=== PATIENT | female | born 1955 | race Caucasian/White ===

== ENCOUNTER → 2021-01-16 | Outpatient (CLI) | payer OTHER ==
[~2021-01-16] MED LIST: ASA81BEC PO; GLUCOSAMINE HC500 MG PO; METHOTREXATE 22.5 M1; PREDNISONE 5 MG5 M1 PO; UNICOMPLEX M TA1 TA1 PO
== END ==
LOC: M.CT 08:15
PROVIDERS: ATTEND Internal Medicine Cardiovascular Disease
DX: Z13.6 Encounter for screening for cardiovascular disorders (principal)

== ENCOUNTER → 2021-02-15 | Outpatient (CLI) | payer OTHER ==
--- NOTE | 2021-02-15 16:32 | EXE ---
[place] [address] STRESS ECHOCARDIOGRAM Name: JEREMY MORALES Room: [facility]#: [id number] Admission: 02/15/21 Attend Phys: Tay Duenas MD Discharge: Date of : 57 Date of Service: 02/15/21 1620 Report #: [id number] THIS REPORT FOR: cc: Verenice Christiansen Kathleen M. DO Holkins, John M. MD [facility] ~ APPROVED REPORT Study performed: 02/15/2021 14:21:11 Exam: Dobutamine Stress Echo Indication: Chest pain , Dyspnea Patient Location: Out-Patient Stress Nurse: Amy Russell RN Supervising Physician: Darvin Mcfadden MD Ht: 5 ft 6 in HR: 66 bpm BP: 143/83 mmHg Medical History Cardiac Risk Factors: Tobacco History (Former) Procedure The patient underwent a Pharmacological Stress Test using Dobutamine. Blood pressure, heart rate, and EKG were monitored. An Echocardiogram was performed by hvac operations technician in four stages in quad fashion. At peak stress, four selected images were obtained and placed side by side with resting images for comparison. Stress Test Details Stress Test: Pharmacological Stress Test using Dobutamine. Reason for pharmacologic stress test: physical limitation. HR Resting HR: 90 bpm Max Heart Rate (APMHR): 156 bpm Max HR Achieved: 156 bpm Target HR (85% APMHR): 132 bpm % of APMHR: 100 Recovery HR: 105 bpm HR response to stress: Normal HR response to stress BP Resting BP: 143/83 mmHg Max BP: 172/64 mmHg Recovery BP: 145/83 [place] [address] STRESS ECHOCARDIOGRAM Name: JEREMY MORALES Room: [facility]#: [id number] Admission: 02/15/21 Attend Phys: Tay Duenas MD Discharge: Date of : 57 Date of Service: 02/15/21 1620 Report #: [id number] BP response to stress: Normal blood pressure response to stress. ECG Resting ECG: Sinus rhythm normal EKG Stress ECG: No ischemic ST-T changes noted Arrhythmia: Rare isolated PVCs Recovery ECG: No ischemic ST-T changes noted Recovery Arrhythmia: No arrhythmias noted Clinical Reason for Termination: Completed protocol Exercise duration: 10 min 29 sec Exercise capacity: 1.00 METs Pre-Stress Echo The resting Echocardiogram showed normal left ventricular contractility with an estimated Ejection Fraction of about 60-65%. Normal wall motion in all segments on baseline images. Post-Stress Echo The stress Echocardiogram showed normal left ventricular contractility with an estimated Ejection Fraction of about >70%. Normal augmentation of wall motion in all segments on post stress images. Conclusion Clinical Response: Non-ischemic Stress ECG Response: Non-ischemic Stress Echo Images: Non-ischemic Other Information Study Quality: Adequate <ELECTRONICALLY SIGNED> By: Darvin Mcfadden MD, [facility] 02/15/211619 19 19 Darvin Mcfadden MD, FAC /INF
== END ==
LOC: M.CRD 02-08 15:00
PROVIDERS: ATTEND Internal Medicine Cardiovascular Disease
DX: R06.02 Shortness of breath (principal); R07.1 Chest pain on breathing; R93.1 Abnormal findings on diagnostic imaging of heart and coronary circulation